=== PATIENT | female | born 2000 | race Two or more races ===

== ENCOUNTER 2025-09-03 16:05 | Emergency (ER) | payer OTHER ==
[~2025-09-03] VITALS: Ht 160 cm; Wt 81.8 kg
[2025-09-03 16:21] VITALS: BP 140/85; PULSE 72; RESP 20; TEMP 98.7; O2SAT 99
[2025-09-03] MEDS ORDERED: HYDR-4062 PO (16:24)
[2025-09-03 16:51] LABS: PLATELET COUNT (AUTO) 242 K/uL (150-450); RED BLOOD CELL COUNT(AUTO) 4.54 MIL/uL (4.00-5.20); RED CELL DISTRIBUTION WIDTH 14.2 % (11.5-14.5); WHITE BLOOD COUNT (AUTO) 8.4 K/uL (4.5-11.0)
[2025-09-03 17:05] LABS: CALCIUM, TOTAL 8.6 mg/dL (8.8-10.5); CREATININE 0.66 mg/dL (0.60-1.30); GLOMERULAR FILTR. RATE CALC > 60 mL/min (>60); GLUCOSE,RANDOM 119 mg/dL (70-110); SODIUM SERUM 139 mmol/L (136-145); UREA NITROGEN, BLOOD 8 mg/dL (7-18)
[2025-09-03 17:10] LABS: ASPARTATE AMINOTRANSFERASE 34.0 U/L (15-37); TOTAL PROTEIN, SERUM 7.6 g/dL (6.4-8.2)
[2025-09-03 17:34] LABS: HCG,QUANTITATIVE 2 mIU/mL (0-6)
== END 2025-09-03 19:00 | disposition left against medical advice (07) ==
LOC: EMS 16:10
DX: R10.10 Upper abdominal pain, unspecified (principal); R10.20 Pelvic and perineal pain unspecified side; Z53.21 Procedure and treatment not carried out due to patient leaving prior to being seen by health care provider
CPT/HCPCS: 80048; 80076; 83690; 84702; 85025; 99281